=== PATIENT | female | born 1970 | race Caucasian/White ===

== ENCOUNTER 2017-02-02 11:23 | Emergency (ER) | payer OTHER | END 2017-02-02 13:20 | disposition home or self-care (01) | LOC: FER 11:23 | DX: S83.91XA Sprain of unspecified site of right knee, initial encounter (principal); Z91.048 Other nonmedicinal substance allergy status; W17.89XA Other fall from one level to another, initial encounter; Y92.830 Public park as the place of occurrence of the external cause | CPT/HCPCS: 73564; 99283 ==

== ENCOUNTER 2021-05-03 11:40 | Emergency (ER) | payer OTHER ==
[~2021-05-03 11:40] MED LIST: BENTYL10 MG PO; PHENERGAN12.5 M1 PO
[2021-05-03 14:03] LABS: BILIRUBIN NEGATIVE (NEGATIVE); BLOOD NEGATIVE Ery/uL (NEGATIVE); CLARITY CLEAR (CLEAR); COLOR YELLOW (YELLOW); EOSINOPHIL 4.5 % (0-5); GLUCOSE (U) NORMAL (NORMAL); HCT 44.3 % (37.0-47.0); LEUKOCYTES NEGATIVE Leu/uL (NEGATIVE); LYMPHOCYTE 23.2 % (15-48); MCH 31.9 pg (25.0-31.0); MCHC 33.9 g/dL (32.0-36.0); MCV 94.3 fL (78.0-100.0); MONOCYTE 7.5 % (0-12); MPV 10.1 fL (6.0-9.5); NEUTROPHIL 63.4 % (41-80); NITRITE NEGATIVE (NEGATIVE); NRBC 0; PLT 307 K/uL (150-400); PROTEIN NEGATIVE (NEGATIVE); RDW 13.2 % (11.5-14.0); UROBILINOGEN 0.2 mg/dL (0.2-1.0); WBC 8.4 K/uL (4.0-10.5)
[2021-05-03 14:13] LABS: ALBUMIN 3.6 g/dL (3.4-5.0); BILIRUBIN - TOTAL 0.4 mg/dL (0.2-1.0); BUN/CREAT RATIO (CALC) 6.4 RATIO; CREATININE 0.94 mg/dL (0.51-0.95); GLOBULIN (CALCULATION) 3.6 g/dL; POTASSIUM 3.5 mmol/L (3.5-5.1); TOTAL PROTEIN 7.2 g/dL (6.4-8.2)
[2021-05-03] MEDS ORDERED: NAPROXEN500 MG PO (15:44)
[2021-05-03] MEDS ORDERED: BACLOFEN 10MG T10 MG PO (15:44)
[2021-05-03] MEDS ORDERED: MEDROL 4MG DOSEP4 MG PO (15:44)
== END 2021-05-03 16:02 | disposition home or self-care (01) ==
LOC: FER 11:40
PROVIDERS: Nurse Practitioner Family
DX: M94.0 Chondrocostal junction syndrome [Tietze] (principal); R10.10 Upper abdominal pain, unspecified
CPT/HCPCS: 36415; 71275; 80053; 81003; 82150; 83690; 85025; 94010; J1100; J1885; J2405; J7030; Q9967